=== PATIENT | female | born 1990 | race Caucasian/White ===

== ENCOUNTER 2020-03-31 18:57 | Emergency (ER) | payer OTHER, SELFPAY ==
[2020-03-31 19:13] VITALS: BP 151/94; PULSE 84; RESP 18; TEMP 37.1; O2SAT 99
--- NOTE | 2020-03-31 19:15 | ED.SKABFB ---
HPI - Skin/Abscess/Foreign Bdy General Chief complaint: Skin/Abscess/Foreign Body Stated complaint: spider bite on side Time Seen by Provider: 03/31/20 19:15 Source: patient Mode of arrival: ambulatory Limitations: no limitations History of Present Illness HPI narrative: Aleshia Rossi is a 29 yo female with a PMH of depression who comes to express care for small boil the right side of breast since . currently is draining. Patient states started after swimming in [place] Related Data Home Medications Medication Instructions Recorded Confirmed norethindrone-e.estradiol-iron tablet 03/31/20 [] sertraline mg 03/31/20 Allergies Allergy/AdvReac Type Severity Reaction Status Date / Time No Known Allergies Allergy Unverified 01/03/18 16:27 Review of Systems Review of Systems: Narrative: CONSTITUTIONAL: Denies fever, chills, sweats. EYES: Denies visual changes, redness, discharge. ENT: Denies rhinorrhea, congestion, sore throat, otalgia. CARDIOVASCULAR: Denies chest pain, palpitations, edema. RESPIRATORY: Denies dyspnea, wheezing, cough GASTROINTESTINAL: Denies abdominal pain, nausea, vomiting, diarrhea. GENITOURINARY: Denies dysuria, hematuria, abnormal discharge SKIN: Denies rash or itching. NEUROLOGIC: Denies numbness, or focal weakness. PSYCHIATRIC: Denies anxiety or depression. PMFSH Past Medical History Medical History HTN (hypertension) Family History Family History Other No active medical problems Social History Social History Smoking packs per day: 1 Smoking cigarettes per day: 20.0 Smoking status: Current every day smoker Tobacco type: cigarettes Alcohol intake: current Comments At time of signature, I agree with nursing past medical, surgical, social and family history. There is no relevant family history pertinent to the presenting complaint. Due to pain and procedure from today been should have blood pressure recheck with next week. Patient advised to be discontinued from any blood pressure medications Exam Narrative: Exam Narrative: GENERAL: This is a well-nourished, well-developed patient, in mild distress. HEAD: normocephalic, atraumatic. EYES: Sclera clear/white. Vision is grossly intact. EARS: External ears normal. Hearing grossly intact. NOSE: External nose normal without nasal discharge, nares without redness, no rhinorrhea. THROAT: Mucous membranes moist, NECK: Neck supple, CARDIOVASCULAR: Regular rate and rhythm without murmurs, gallops, or rubs. RESPIRATORY: Clear to auscultation. Breath sounds equal bilaterally. No wheezes, rales, or rhonchi. GASTROINTESTINAL: Abdomen soft, small abscess (3x2) to R breast - slight drainage SKIN: warm, intact with no suspicious lesions or rash, good texture and turgor. NEURO: awake, alert, and oriented to person, place and time. There were no obvious focal neurologic abnormalities. Steady gait EXTREMITIES: Normal range of motion. BACK: Nontender without deformity Course Course Emergency Course: I and D of breat abscess Started on keflex and bactrim Discussed care of abscess and avoidance of sitting Vital Signs Vital signs: Vital Signs Temperature 98.7 F 03/31/20 19:13 Pulse Rate 84 03/31/20 19:13 Respiratory Rate 18 03/31/20 19:13 Blood Pressure 151/94 H 03/31/20 19:13 Pulse Oximetry 99 03/31/20 19:13 Temperature 98.7 F 03/31/20 19:13 Pulse Rate 84 03/31/20 19:13 Respiratory Rate 18 03/31/20 19:13 Blood Pressure 151/94 H 03/31/20 19:13 Pulse Oximetry 99 03/31/20 19:13 Procedures Abscess I/D chest: Date of Incision: 03/31/20 Time of Incision: 19:20 Side (if applicable): right Technique: needle aspiration Amount of fluid expressed (mL): 20 Irr
== END 2020-03-31 19:39 | disposition home or self-care (01) ==
PROVIDERS: Emergency Provider Nurse Practitioner
DX: N61.1 Abscess of the breast and nipple (principal); F17.210 Nicotine dependence, cigarettes, uncomplicated; F41.9 Anxiety disorder, unspecified; F32.9 Major depressive disorder, single episode, unspecified
CPT/HCPCS: 10160; 99213; G0463

== ENCOUNTER 2020-07-02 09:05 | Emergency (ER) | payer OTHER, SELFPAY ==
[2020-07-02 09:10] VITALS: BP 138/81; PULSE 81; RESP 16; TEMP 36.7; O2SAT 100
--- NOTE | 2020-07-02 09:23 | ED.URI ---
HPI - URI/Sore Throat General Chief Complaint: Upper Respiratory Infection Stated Complaint: headache/sore throat Time Seen by Provider: 07/02/20 09:23 Source: patient and RN notes reviewed History of Present Illness HPI Narrative: Patient is a 29-year-old female who presents the urgent care with complaints of a headache and sore throat. Patient states symptoms started approximately 3 days ago and she has been using Tylenol. Denies of any known fever, nausea, vomiting, abdominal pain. Denies of any known exposure to COVID or strep. No other acute complaints. No acute distress noted. Patient aware of the plan of care. Some parts of this dictation were generated by voice recognition software and may contain typographical and/or grammatical inaccuracies. Related Data Home Medications Medication Instructions Recorded Confirmed norethindrone-e.estradiol-iron 1 tablet PO DAILY 03/31/20 07/02/20 [] sertraline 50 mg PO DAILY 03/31/20 07/02/20 Allergies Allergy/AdvReac Type Severity Reaction Status Date / Time No Known Allergies Allergy Unverified 01/03/18 16:27 Review of Systems Review of Systems: Narrative: CONSTITUTIONAL: Denies fever, chills, or sweats. EYES: Denies visual changes, redness, or discharge. ENT: Reports of sore throat CARDIOVASCULAR: Denies chest pain, palpitations, or edema. RESPIRATORY: Denies cough or dyspnea. GASTROINTESTINAL: Denies abdominal pain, nausea, vomiting, or diarrhea. GENITOURINARY: Denies dysuria or hematuria. SKIN: Denies rash or itching. MUSCULOSKELETAL: Denies back pain, joint pain, or myalgia. NEUROLOGIC: Reports of headache All other systems reviewed are negative, except as documented in HPI. PMFSH Social History Social History Smoking packs per day: 1 Smoking cigarettes per day: 20.0 Smoking status: Current every day smoker Tobacco type: cigarettes Alcohol intake: current Comments At the time of my signature, I reviewed and agree with the nursing past medical, surgical, social, and family history. There is no relevant family history pertinent to the patient complaint. Exam Narrative: Exam Narrative: GENERAL: This is a well-nourished, well-developed patient, in no apparent distress. HEAD: normocephalic, atraumatic. EYES: PERRL. Sclera clear/white. Vision is grossly intact. EARS: External ears normal, auditory canals clear and without drainage, TMs normal without perforation. Hearing grossly intact. NOSE: External nose normal with no obvious nasal discharge, nares without redness, no rhinorrhea. THROAT: Mucous membranes moist, mild erythema noted posterior oropharynx with mild postnasal drainage NECK: Neck supple CARDIOVASCULAR: Regular rate and rhythm without murmurs, gallops, or rubs. RESPIRATORY: Clear to auscultation. Breath sounds equal bilaterally. No wheezes, rales, or rhonchi. SKIN: warm, intact with no suspicious lesions or rash, good texture and turgor. NEURO: awake, alert, and oriented to person, place and time. There were no obvious focal neurologic abnormalities. EXTREMITIES: No clubbing, cyanosis, or edema. Course Vital Signs Vital signs: Vital Signs Temperature 98.0 F 07/02/20 09:10 Pulse Rate 81 07/02/20 09:10 Respiratory Rate 16 07/02/20 09:10 Blood Pressure 138/81 07/02/20 09:10 Pulse Oximetry 100 07/02/20 09:10 Temperature 98.0 F 07/02/20 09:10 Pulse Rate 81 07/02/20 09:10 Respiratory Rate 16 07/02/20 09:10 Blood Pressure 138/81 07/02/20 09:10 Pulse Oximetry 100 07/02/20 09:10 Reviewed MDM - URI/Sore Throat MDM Narrative Medical decision making narrative: Reviewed lab results with the patient. She is aware that strep swab was negative. Educated the patient on culture and we will call within 72 hours if culture is positive and antibiotics are necessary. Advised the patient to use [id number] Claritin in conjunction with Flonase ortiz
== END 2020-07-02 09:35 | disposition home or self-care (01) ==
PROVIDERS: Emergency Provider Nurse Practitioner Family; PCP Family Medicine
DX: J02.9 Acute pharyngitis, unspecified (principal); F17.210 Nicotine dependence, cigarettes, uncomplicated; F41.9 Anxiety disorder, unspecified; F32.9 Major depressive disorder, single episode, unspecified
CPT/HCPCS: 87081; 87880; 99213; G0463

== ENCOUNTER 2022-08-16 10:09 | Emergency (ER) | payer OTHER, SELFPAY ==
[2022-08-16 10:26] VITALS: BP 129/60; PULSE 91; RESP 16; TEMP 36.9; O2SAT 100
--- NOTE | 2022-08-16 11:55 | ED.URI ---
HPI - URI/Sore Throat General Chief Complaint: Upper Respiratory Infection Stated Complaint: Chest Congestion/Cough Time Seen by Provider: 08/16/22 11:55 Source: patient, RN notes reviewed and old records reviewed Mode of arrival: ambulatory Limitations: no limitations History of Present Illness HPI Narrative: 31 year old female who presents to [facility] care with complaints of sore throat starting on with loss of voice on Wednesday,and yesterday evening she started with cough. Patient reports that she has been taking Ibuprofen for her symptoms. Patient does reports some yellowish nasal drainage, some body aches and fatigue,and headache, denies any known acute fevers, MD elicited complaint: cough and sore throat Onset (ago): day(s) (day 4 of symptoms) Pain scale (0-10): 6 Exacerbating factors: swallowing and other (cough) Treatments prior to arrival: ibuprofen Related Data Home Medications Medication Instructions Recorded Confirmed norethindrone 1 mg-ethinyl 1 tablet PO DAILY 03/31/20 08/16/22 estradiol 20 mcg (24)-iron 75 mg (4) tablet () sertraline 50 mg tablet 50 mg PO DAILY 03/31/20 08/16/22 lisinopril 5 mg tablet 5 mg PO DAILY 08/16/22 08/16/22 Allergies Allergy/AdvReac Type Severity Reaction Status Date / Time No Known Allergies Allergy Verified 08/16/22 10:50 Review of Systems Review of Systems: CONSTITUTIONAL: Reports malaise,no chills, sweats, or fever. EYES: Denies visual changes, redness, or discharge. ENT: Reports rhinorrhea, congestion,no sinus pain, no otalgia, reports sore throat. CARDIOVASCULAR: Denies chest pain, palpitations, or edema. RESPIRATORY: Reports cough.? Denies dyspnea. GASTROINTESTINAL: Denies abdominal pain, nausea, vomiting, diarrhea SKIN: Denies rash or itching. MUSCULOSKELETAL: reports myalgia. NEUROLOGIC: Reports headache. All systems reviewed & are unremarkable except as noted in HPI and below PMFSH Past Medical History Medical History (Updated 08/21/22 @ 10:14 by Mara Beckwith NP) Anxiety and depression Elevated cholesterol HTN (hypertension) Surgical History Surgical History (Updated 08/21/22 @ 10:13 by Mara L. Amena, ADVERTISING SALES AGENT) H/O tubal ligation Family History Family History Other No active medical problems Social History Social History Smoking packs per day: 1 Smoking cigarettes per day: 20.0 Smoking status: Current every day smoker Tobacco type: cigarettes Alcohol intake: current Comments At time of signature, agree with nursing past medical, surgical, social and family history. There is no relevant family history pertinent to the presenting complaint Exam Narrative: GENERAL: Well-appearing, well-nourished, and in no acute distress. HEAD: Normocephalic EYES: PERRLA, conjunctivae jessica ENT: Nares clear, turbinates edematous and erythematous, yellowish nasal discharge. Mucous membranes moist. TM pearly lazaro with dull light reflex bilaterally; no tragal tenderness. Oropharynx erythematous without lesions. Tonsils not enlarged and without exudate, no drooling, no hoarseness, no trismus, uvula midline. NECK: Supple. No lymphadenopathy CHEST: Clear to auscultation, breath sounds equal. No wheezing, rhonchi, rales, or stridor. No respiratory distress, speaks in full sentences. acute cough, SAO2 100% on room air HEART: Regular rate and rhythm. No murmur heard. SKIN: Warm, dry, no rash. NEURO: Alert and oriented x3. PSYCH: Normal mood and affect Course Course Emergency Course: Patient is aware of diagnosis, understands and agrees to treatment plan.? Anticipatory guidance given.? Patient agrees to follow-up as directed and is aware of reasons to seek care at the emergency department. Portions of this record may have been created with voice recognition software Level of Care: Dana Carr
== END 2022-08-16 12:45 | disposition home or self-care (01) ==
PROVIDERS: Emergency Provider Registered Nurse
DX: J11.1 Influenza due to unidentified influenza virus with other respiratory manifestations (principal); R05.9 Cough, unspecified; F17.210 Nicotine dependence, cigarettes, uncomplicated
CPT/HCPCS: 87081; 87804; 87880; 99213; G0463

== ENCOUNTER 2022-08-23 09:17 | Emergency (ER) | payer OTHER, SELFPAY ==
[2022-08-23 10:07] VITALS: BP 136/76; PULSE 73; RESP 16; TEMP 37; O2SAT 98
--- NOTE | 2022-08-23 11:35 | ED.DENTAL ---
HPI - Dental/Oral General Chief complaint: Dental/Oral Stated complaint: Tooth pain Source: patient Mode of arrival: ambulatory Limitations: no limitations History of Present Illness HPI Narrative: 31 year old female presents to [facility] with complaints of right upper tooth pain since last night. Patient reports that she completed a Z-Erik 1 week ago due to right upper tooth pain. Patient reports that she is scheduled to get her right upper tooth pulled --tooth #4 -on Wednesday08/28/2022. Patient reports that she went to the emergency room last night due to increasing tooth pain and was prescribed another Z-Erik better insurance company would not cover. Patient reports that she is taking clindamycin in the past with good results. Patient denies fevers, nausea vomiting or diarrhea. MD Complaint: tooth pain Location: Tooth # (3) Onset (ago): day(s) (1) Relieving factors: nothing Exacerbating factors: chewing, cold and swallowing Context: history of dental caries Related Data Home Medications Medication Instructions Recorded Confirmed norethindrone 1 mg-ethinyl 1 tablet PO DAILY 03/31/20 08/23/22 estradiol 20 mcg (24)-iron 75 mg (4) tablet () sertraline 50 mg tablet 50 mg PO DAILY 03/31/20 08/23/22 lisinopril 5 mg tablet 5 mg PO DAILY 08/16/22 08/23/22 lovastatin 40 mg tablet 40 mg PO DAILY 08/23/22 08/23/22 Allergies Allergy/AdvReac Type Severity Reaction Status Date / Time Penicillins Allergy Rash Verified 08/23/22 10:14 Review of Systems Constitutional: Constitutional: Denies chills, Denies fatigue, Denies fever(s) and Denies weakness ENT: Denies dizziness Comments: Right upper tooth pain Cardiovascular: Cardiovascular: Denies chest pain Respiratory: Respiratory: Denies chest congestion, Denies cough, Denies dyspnea and Denies wheezing Gastrointestinal: Gastrointestinal: Denies diarrhea, Denies nausea and Denies vomiting Integumentary/Breasts: Skin/Breast: Denies rash Neurologic: Denies vertigo and Denies dizziness Allergic/Immunologic: Allergic/Immunologic: Denies lip swelling, Denies throat swelling, Denies tongue swelling and Denies wheezing PMFSH Past Medical History Medical History Anxiety and depression Elevated cholesterol HTN (hypertension) Surgical History Surgical History H/O tubal ligation Family History Family History Other No active medical problems Social History Social History Smoking packs per day: 1 Smoking cigarettes per day: 20.0 Smoking status: Current every day smoker Tobacco type: cigarettes Alcohol intake: current Comments At time of signature, I agree with nursing past medical, surgical, social and family history. There is no relevant family history pertinent to the presenting complaint. Exam Const: General: healthy appearing, no acute distress and alert Nutritional Appearance: well nourished Orientation/consciousness: patient oriented x3 Limitations: no limitations HENMT: Head: normal to inspection Mouth: Yes Normal oral and palatal mucosa present, Yes lip normal and Yes moist mucous membranes Teeth and gingiva: abnormal tooth and associated gingiva upper right Other: Erythema and swelling surrounding tooth 4.; moderate decay noted to tooth. There is no active abscess noted. Neck: Neck: normal visual inspection Resp: Effort & Inspection: normal respiratory effort and not labored Auscultation: clear to auscultation bilaterally, no crackles, no rales, no rhonchi and no wheezes Cardio: Rate: regular rate Rhythm: regular rhythm Heart sounds: no murmurs Skin: General skin exam: normal color Rashes: no rashes Wounds: no wounds Neuro: General: patient oriented x3 Speech: normal speech Gait exam (Neuro): Francisca
== END 2022-08-23 11:44 | disposition home or self-care (01) ==
PROVIDERS: Emergency Provider Nurse Practitioner Family; PCP Internal Medicine
DX: K08.89 Other specified disorders of teeth and supporting structures (principal); F17.210 Nicotine dependence, cigarettes, uncomplicated; E78.00 Pure hypercholesterolemia, unspecified; I10 Essential (primary) hypertension; F41.9 Anxiety disorder, unspecified; F32.A Depression, unspecified
CPT/HCPCS: 99213; G0463

== ENCOUNTER 2024-04-05 13:21 | Emergency (ER) | payer OTHER, SELFPAY ==
--- NOTE | ~2024-04-05 | XR_ITS ---
EXAMINATION: XR chest 2V DATE: 04/05/2024 14:08 INDICATION: Cough and concern for pneumonia TECHNIQUE: PA and lateral views of the chest were obtained. COMPARISON: None FINDINGS: Moderate-sized region of consolidation in the anterior segment of the right upper lobe extending luz maria g the minor fissure consistent with pneumonia. No other airspace opacities, pulmonary edema, pleural effusion or pneumothorax. The cardiomediastinal silhouette is normal. Mild to moderate midthoracic sp ondylosis with mild anterior wedging at a couple of the thoracolumbar junction and at a midthoracic v ertebra. IMPRESSION: 1. Consolidation in the anterior segment right upper lobe consistent with pneumonia. Reviewed, dictated and finalized at location A. IMPRESSION: 1. Consolidation in the anterior segment right upper lobe consistent with pneum onia.
[2024-04-05 13:27] VITALS: BP 120/78; PULSE 69; RESP 18; TEMP 37; O2SAT 100
--- NOTE | 2024-04-05 13:58 | ED.URI ---
HPI - URI/Sore Throat General Chief Complaint: Upper Respiratory Infection Stated Complaint: chest tight/cough Time Seen by Provider: 04/05/24 13:58 Source: patient, RN notes reviewed and old records reviewed Mode of arrival: ambulatory Limitations: no limitations History of Present Illness HPI Narrative: 33 year old female who presents to express care with complaints of fever, cough pain in upper chest with deep breathing and cough since Wednesday. Patient reports that she has noted some wheezes at times denies any acute shortness of breath with no tachypnea or retractions, Patient reports that she had cardiac ablation on March 24 at [facility] for SVT. Patient voices concern for pneumoni, reports has had past pneumonia. Patient has history of tobacco use and now presently vapes.Patientreports that she has taken some Muucinex and Tylenol for her symptoms MD elicited complaint: fever, cough, nasal congestion and other (hurt to cough and deep breath) Pertinent past history: pneumonia and other (former cigarett use now vapes) Onset (ago): day(s) (4) Severity: moderate Able to tolerate fluids by mouth: Yes Treatments prior to arrival: acetaminophen and other (Mucinex) Related Data Home Medications Medication Instructions Recorded Confirmed norethindrone 1 mg-ethinyl 1 tablet PO DAILY 03/31/20 08/23/22 estradiol 20 mcg (24)-iron 75 mg (4) tablet () sertraline 50 mg tablet 50 mg PO DAILY 03/31/20 08/23/22 lisinopril 5 mg tablet 5 mg PO DAILY 08/16/22 08/23/22 lovastatin 40 mg tablet 40 mg PO DAILY 08/23/22 08/23/22 Vitamin B3 04/05/24 Zinc 04/05/24 aspirin 81 mg tablet,delayed mg 04/05/24 release levothyroxine 100 mcg tablet mcg 04/05/24 metoprolol tartrate 50 mg tablet mg 04/05/24 Allergies Allergy/AdvReac Type Severity Reaction Status Date / Time Penicillins Allergy Rash Verified 08/23/22 10:14 Review of Systems Review of Systems: CONSTITUTIONAL: Reports malaise, chills, sweats, positive for fever. EYES: Denies visual changes, redness, or discharge. ENT: Reports rhinorrhea, congestion, no sinus pain, no otalgia and no sore throat. CARDIOVASCULAR: Denies chest pain, palpitations, or edema.States some chest discomfort when coughs and taking deep breaths RESPIRATORY: Reports cough.? Denies acute dyspnea reports some with exertion.. GASTROINTESTINAL: Denies abdominal pain, nausea, vomiting, diarrhea SKIN: Denies rash or itching. MUSCULOSKELETAL: Denies myalgia. NEUROLOGIC: Denies headache. All systems reviewed & are unremarkable except as noted in HPI and below PMFSH Past Medical History Medical History (Updated 04/07/24 @ 11:07 by Mara Beckwith NP) Anxiety and depression Elevated cholesterol HTN (hypertension) Hypothyroid Pneumonia SVT (supraventricular tachycardia) Surgical History Surgical History (Updated 04/05/24 @ 14:36 by Mara Beckwith NP) H/O cardiac radiofrequency ablation March 242023 H/O tubal ligation Family History Family History Other No active medical problems Social History Social History (Updated 04/07/24 @ 11:02 by Mara Beckwith NP) Smoking packs per day: 1 Smoking cigarettes per day: 20.0 Years smoked: 10 Smoking pack-years: 10.00 Smoking status: Current every day smoker Tobacco type: cigarettes and e-cigarettes/vaping Additional smoking assessment comments: use to smoke cigarettes now vapes Alcohol intake: current Substance use type: does not use Living arrangements: with family Gender identity (if verbalized by the patient): Female Comments At time of signature, agree with nursing past medical, surgical, social and family history. There is no relevant family history pertinent to the presenting complaint Exam Narrative: GENERAL: Well-appearing, well-nourished, and in no acute distress. HEAD: Normocephalic EYES: PERRLA, conj
== END 2024-04-05 14:54 | disposition home or self-care (01) ==
PROVIDERS: Emergency Provider Registered Nurse
DX: J18.9 Pneumonia, unspecified organism (principal); F17.290 Nicotine dependence, other tobacco product, uncomplicated; E78.00 Pure hypercholesterolemia, unspecified; I10 Essential (primary) hypertension; E03.9 Hypothyroidism, unspecified; F41.9 Anxiety disorder, unspecified; F32.A Depression, unspecified
CPT/HCPCS: 71046; 99213; G0463

== ENCOUNTER 2024-06-27 08:20 | Emergency (ER) | payer BC, SELFPAY ==
[2024-06-27 08:28] VITALS: BP 120/75; PULSE 74; RESP 20; TEMP 37; O2SAT 98
--- NOTE | 2024-06-27 08:42 | ED.URI ---
HPI - URI/Sore Throat General Chief Complaint: Upper Respiratory Infection Stated Complaint: throat/headache Time Seen by Provider: 06/27/24 08:42 Source: patient, RN notes reviewed and old records reviewed Mode of arrival: ambulatory Limitations: no limitations History of Present Illness HPI Narrative: 33-year-old female to Express Care with complaint of headache that started 3 days ago and sore throat that started last night. Patient endorses history of hypertension, high cholesterol, hypothyroidism. Patient denies history of migraines. Patient concerned for strep throat. Patient has attempted to treat symptoms of pain with Tylenol, last dose at 1:00 a.m. today. Patient denies difficulty swallowing, shortness of breath, fever, chest pain, ear pain, congestion. Patient able to tolerate fluids by mouth. Patient resting comfortably in exam room in no acute distress. Respirations even nonlabored. Patient able to control secretions. Related Data Home Medications Medication Instructions Recorded Confirmed norethindrone 1 mg-ethinyl 1 tablet PO DAILY 03/31/20 06/27/24 estradiol 20 mcg (24)-iron 75 mg (4) tablet () sertraline 50 mg tablet 50 mg PO DAILY 03/31/20 06/27/24 lisinopril 5 mg tablet 5 mg PO DAILY 08/16/22 06/27/24 lovastatin 40 mg tablet 40 mg PO DAILY 08/23/22 06/27/24 aspirin 81 mg tablet,delayed 81 mg PO DAILY 04/05/24 06/27/24 release levothyroxine 100 mcg tablet 100 mcg PO DAILY 04/05/24 06/27/24 metoprolol tartrate 50 mg tablet 50 mg PO DAILY 04/05/24 06/27/24 Allergies Allergy/AdvReac Type Severity Reaction Status Date / Time Penicillins Allergy Unknown Rash Verified 06/27/24 08:47 Review of Systems Review of Systems: All systems reviewed & are unremarkable except as noted in HPI and below Constitutional: Constitutional: Reports as per HPI and Reports headache(s) Eyes: Eyes: Reports no additional eye complaints ENT: Reports as per HPI and Reports sore throat Cardiovascular: Cardiovascular: Reports no additional cardiovascular complaints, Denies chest pain and Denies dyspnea Respiratory: Respiratory: Reports no additional respiratory complaints, Denies cough and Denies dyspnea Musculoskeletal: Musculoskeletal: Reports no additional musculoskeletal complaints Neurologic: Reports system reviewed and no additional complaints, except as documented Psychiatric: Psychiatric: Reports no additional psychiatric complaints PMFSH Past Medical History Medical History Anxiety and depression Elevated cholesterol HTN (hypertension) Hypothyroid Pneumonia SVT (supraventricular tachycardia) Surgical History Surgical History H/O cardiac radiofrequency ablation March 242023 H/O tubal ligation Family History Family History Other No active medical problems Social History Social History Smoking packs per day: 1 Smoking cigarettes per day: 20.0 Years smoked: 10 Smoking pack-years: 10.00 Smoking status: Current every day smoker Tobacco type: cigarettes and e-cigarettes/vaping Additional smoking assessment comments: use to smoke cigarettes now vapes Alcohol intake: current Substance use type: does not use Living arrangements: with family Gender identity (if verbalized by the patient): Female Comments At the time of my signature, I reviewed and agree with the nursing past medical, surgical, social, and family history. There is no relevant family history pertinent to the patient complaint. Exam Const: General: cooperative, healthy appearing, comfortable, no acute distress, alert and well nourished Nutritional Appearance: well nourished Orientation/consciousness: patient oriented x3 Limitations: no limitations JARED
[2024-06-27 09:01] LABS: EDCOVIDSCREEN Negative (Negative); EDINFLUASCREEN Negative (Negative); EDINFLUBSCREEN Negative (Negative); EDSTREPNEGPOS1 Negative (Negative)
== END 2024-06-27 09:00 | disposition home or self-care (01) ==
PROVIDERS: Emergency Provider Nurse Practitioner Family
DX: J02.9 Acute pharyngitis, unspecified (principal); R51.9 Headache, unspecified; B34.9 Viral infection, unspecified; Z20.822 Contact with and (suspected) exposure to COVID-19; F17.290 Nicotine dependence, other tobacco product, uncomplicated; E78.00 Pure hypercholesterolemia, unspecified; I10 Essential (primary) hypertension; E03.9 Hypothyroidism, unspecified; F41.9 Anxiety disorder, unspecified; F32.A Depression, unspecified
CPT/HCPCS: 87081; 87426; 87804; 87880; 99213; G0463

== ENCOUNTER 2025-05-28 09:21 | Emergency (ER) | payer BC, SELFPAY ==
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
[2025-05-28 09:26] VITALS: BP 135/75; PULSE 78; RESP 16; TEMP 36.3; O2SAT 99
--- OUTSIDE RECORDS SUMMARY | 2025-05-28 09:26 | XMS_ITS | Clinical Summary ---
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 cervical cancer. It is not a diagnostic test and is subject to false negative and false positive results. It is most reliable when a satisfactory sample, regularly obtained, is submitted with relevant clinical findings and history, and when the Pap result is evaluated along with historic and current clinical information. Thin prep 01/16/2025 3:53 PM CDT 01/17/2025 9:19 PM CDT Makenna James NP LAB CYTOLOGY ORDERABLES Final Re sult Performing Organization Address [facility] Co de Phone Number [facility] [employer] [address] [address] [place] [address] * Hepatitis C antibody Blood (12/25/2024 11:50 AM CDT) Hep C Ab Nonreactive Nonreactive Comment: Interpretive Data Nonreactive: Antibodies to HCV not detected. Does NOT exclude the possibility of recent exposure to HCV. Equivocal: Equivocal for HCV antibodies. Supplemental molecular testing will be automatically performed to determine infection status in accordance with current CDC screening recommendations. Reactive: Positive for HCV antibodies. This may represent current or past HCV infection. Supplemental molecular testing will be automatically performed to determine current infection status in accordance with current CDC screening recommendations. Interpretive data was last revised on 2019. Testing performed by: [facility], [address] [place] [address]., [id number] Blood 12/25/2024 11:5 0 AM CDT 12/25/2024 7:15 PM CDT Doyle Lu MD LAB MICROBIOLOGY - [facility] L ORDERABLES Final Result [facility] Department [place] [address] from Last 3 Months or Most Recently Relevant to Health Maintenance Insurance [facility] [place] Advance Directives For more information, please contact: [phone] * Full Code (Latest Code Status on File) Date Activated Date Inactivated Comments 07/10/2020 12:51 PM 07/10/2020 6:57 PM * Full Code Date Activated Date Inactivated Comments 11/25/2019 4:13 PM 11/26/2019 10:48 PM * Full Code Date Activated Date Inactivated Comments 11/18/2019 1:08 AM 11/19/2019 5:22 PM * Full Code Date Activated Date Inactivated Comments 11/17/2019 6:13 AM 11/18/2019 1:08 AM Full CPR in case of cardiopulmonary arrest * Full Code Date Activated Date Inactivated Comments 2019 10:58 PM 09/16/2019 12:43 AM Full CPR in case of cardiopulmonary arrest Care Teams 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
--- OUTSIDE RECORDS SUMMARY | 2025-05-28 09:26 | XMS_ITS | Clinical Summary ---
Author Organization [facility] Address [address] [place] [address] Phone Care Team Providers Care Psych Arnp Name Role Phone Jerome Jacobo MD Primary Care Provider Allergies Active Allergy Reactions Criticality Noted Date Comments Penicillins Unknown 02/26/2023 Medications No known medications Social History Tobacco Use Types Packs/Day Years Used Date Smoking Tobacco: Never Passive Smoke Exposure: Never Smokeless Tobacco: Never Tobacco Cessation:Counseling Given: Not Answered Alcohol Use Standard Drinks/Week Comments Not Currently 0 (1 standard drink = 0.6 oz pur e alcohol) Comments No Sex and Gender Information Value Date Recorded Sex Assigned at Not on file Legal Sex Female 7:31 PM CDT Gender Identity Not on file Sexual Orientation Not on file Last Filed Vital Signs Vital Sign Reading Time Taken Comments Blood Pressure 112/65 02/26/2023 4:57 PM CDT Pulse 70 02/26/2023 4:57 PM CDT Temperature 36.4 C (97.6 F) 02/26/2023 4:57 PM CDT Respiratory Rate 18 02/26/2023 4:57 PM CDT Oxygen Saturation 100% 02/26/2023 4:57 PM CDT Inhaled Oxygen Concentration - - Weight 78 kg (172 lb) 02/26/2023 2:23 PM CDT Height 157.5 cm (5' 2) 02/26/2023 2:23 PM CDT Body Mass Index 31.46 02/26/2023 2:23 PM CDT Plan of Treatment Health Maintenance Due Date Last Done Comments Hepatitis C Virus (HCV) Screening 1989 Hepatitis B Immunization (3 of 3 - 3-dose series) 11/25/2000 09/30/2000, 04/26/2000, 04/05/2000 Pap Smear 2010 Cervical Cancer Screening (CCS) 2019 HPV/Cotest 2019 SARS-COV-2 Immunization ( season) 2024 Influenza Immunization (#1) 2025 07/20/2011 Respiratory Syncytial Virus (RSV) Immunization (Adult) (1 - 1-dose 75+ series) 2064 Human Papillomavirus (HPV) Immunization Completed 10/04/2012, 09/07/2008, 06/13/2008 DTaP/Tdap/Td Immunization Discontinued 2019, 01/10/2015, 04/02/2004, Additional history exists TdaP Immunization Completed 10/17/2019, 01/10/2015 Meningococcal Immunization (ACWY) Aged Out No longer eligible based on patient's age to complete this topic Pneumococcal Immunization Combined Aged Out No longer eligible based on patient's age to complete this topic Rotavirus Immunization Aged Out No lo nger eligible based on patient's age to complete this topic Insurance MEDICAID [place] Care Teams Psych Arnp Relationship Specialty Start Date End Date Jerome Jacobo MD PCP - General Internal Medicine 02/26/23
--- NOTE | 2025-05-28 09:45 | ED.SKABFB ---
HPI - Skin/Abscess/Foreign Bdy General Chief complaint: Skin/Abscess/Foreign Body Stated complaint: Rash behind ear and on lower back/irrated nail bed Time Seen by Provider: 05/28/25 09:35 Source: patient and RN notes reviewed Mode of arrival: ambulatory Limitations: no limitations History of Present Illness HPI narrative: 34-year-old female presents Express Care complaining of rash for 2 days. Patient says she noticed a rash on the left side of her neck after she started itching. Since then the patient has noticed the rash is spread to her bilateral lower flanks. Patient also reports she had her nails done with gel and also reports having blistering around her nail beds. Patient says she has removed the gel since. Patient reports the rashes or pruritic. Patient has taken Zyrtec along with using a Tylenol cream without relief. Patient denies any other symptoms. Patient denies being outside or being in the [place]. Related Data Home Medications ?Medication ?Instructions ?Recorded ?Confirmed ?Last Taken ?Type norethindrone 1 mg-ethinyl 1 tablet PO DAILY 03/31/20 06/27/24 Unknown History estradiol 20 mcg (24)-iron 75 mg (4) tablet () sertraline 50 mg tablet 50 mg PO DAILY 03/31/20 06/27/24 Unknown History lisinopril 5 mg tablet 5 mg PO DAILY 08/16/22 06/27/24 Unknown History lovastatin 40 mg tablet 40 mg PO DAILY 08/23/22 06/27/24 Unknown History levothyroxine 100 mcg tablet 100 mcg PO DAILY 04/05/24 06/27/24 Unknown History Allergies Allergy/AdvReac Type Severity Reaction Status Date / Time Penicillins Allergy Unknown Rash Verified 05/28/25 09:32 Review of Systems Review of Systems: CONSTITUTIONAL: Denies fever, chills, or sweats. EYES: Denies visual changes, redness, or discharge. ENT: Denies rhinorrhea, congestion, sore throat, or otalgia. CARDIOVASCULAR: Denies chest pain, palpitations, or edema. RESPIRATORY: Denies cough or dyspnea. GASTROINTESTINAL: Denies abdominal pain, nausea, vomiting, or diarrhea. GENITOURINARY: Denies dysuria or hematuria. SKIN: Positive for rash and itching. MUSCULOSKELETAL: Denies back pain, joint pain, or myalgia. NEUROLOGIC: Denies headache, numbness, or weakness. PSYCHIATRIC: Denies anxiety or depression. All other systems reviewed are negative, except as documented in HPI. [facility] Past Medical History Medical History Hypothyroid SVT (supraventricular tachycardia) Pneumonia Anxiety and depression Elevated cholesterol HTN (hypertension) Surgical History Surgical History H/O cardiac radiofrequency ablation March 242023 H/O tubal ligation Family History Family History Other No active medical problems Social History Social History Smoking packs per day: 1 Smoking cigarettes per day: 20.0 Years smoked: 10 Smoking pack-years: 10.00 Smoking status: Current every day smoker Tobacco type: cigarettes and e-cigarettes/vaping Additional smoking assessment comments: use to smoke cigarettes now vapes Alcohol intake: current Substance use type: does not use Living arrangements: with family Gender identity (if verbalized by the patient): Female Comments At the time of my signature, I reviewed and agree with the nursing past medical, surgical, social, and family history. There is no relevant family history pertinent to the patient complaint. Exam Narrative: GENERAL: This is a well-nourished, well-developed adult, in no apparent distress. They are non ill-appearing, nontoxic appearing. HEAD: normocephalic, atraumatic. EYES: Sclera clear/white. Conjunctiva normal. Vision is grossly intact. Extraocular movements intact EARS: External ears normal, Hearing grossly intact. NOSE: External nose normal THROAT: Mucous membranes moist, NECK: Neck supple, CARDIOVASCULAR: Regular rate and rhythm RESPIRATORY: Respiratory rate normal, respiratory effort nonlabored, no respiratory distress SKIN: There is a macular erythematous rash present to the patient's left lateral neck, bilateral lower flanks near the iliac crest. There are irregularly shaped. It is nontender, no area of fluctuance, no induration, no exudate.. There is a fist erythematous the vesicular rash her on the patient's nails of her fingers. Your nontender no area of fluctuance, no induration, no exudate. NEURO: awake, alert, and oriented to person, place and time. There were no obvious focal neurologic abnormalities. Course Course Emergency Course: Portions of this record may have been created with voice recognition software Level of Care: Express Care Visit Vital Signs Vital signs: Vital Signs Temperature 97.4 F L 05/28/25 09:26 Pulse Rate 78 05/28/25 09:26 Respiratory Rate 16 05/28/25 09:26 Blood Pressure 135/75 05/28/25 09:26 Pulse Oximetry 99 05/28/25 09:26 Oxygen Delivery Room Air 05/28/25 09:26 Temperature 97.4 F L 05/28/25 09:26 Pulse Rate 78 05/28/25 09:26 Respiratory Rate 16 05/28/25 09:26 Blood Pressure 135/75 05/28/25 09:26 Pulse Oximetry 99 05/28/25 09:26 Oxygen Delivery Room Air 05/28/25 09:26 Reviewed MDM - Skin/Abscess/Foreign Bdy MDM Narrative Medical decision making narrative: Rashes likely related to contact dermatitis. Will prescribe triamcinolone cream. Patient removed the gel from her fingernails which could have been the irritant. Discussed physical exam findings. Advised supportive measures and signs/symptoms to go to the ER. Pt is appropriate for outpt treatment and f/u. Differential Diagnosis Differential diagnosis: Likely urticaria, cellulitis, eczema and contact dermatitis Critical Care Time Critical Care Time Critical Care Time: No Discharge Plan Discharge Clinical Impression: Contact dermatitis Qualifiers: Contact dermatitis type: unspecified Contact dermatitis trigger: unspecified trigger Qualified Code(s): L25.9 - Unspecified contact dermatitis, unspecified cause Patient Disposition: Home Condition: Stable Instructions: Contact Dermatitis (DC) Additional Instructions: Use the triamcinolone cream as directed. Apply only to the affected area. You may use calamine lotion, camphor or Benadryl cream as needed for itchiness symptoms. You may also take Zyrtec or Claritin as needed for allergy or itchiness symptoms. Follow-up PCP in 3-5 days. If you develop any worsening redness, swelling, discharge, fevers, breathing problems, or any other concerns please go to the ER immediately. Patient Language: Mohawk Prescriptions: New triamcinolone acetonide 0.5 % cream 1 applic topical BID 7 Days Qty: 15 0RF No Action sertraline 50 mg tablet 50 mg PO DAILY 1 mg-20 mcg (24)/75 mg (4) tablet 1 tablet PO DAILY lisinopril 5 mg tablet 5 mg PO DAILY lovastatin 40 mg tablet 40 mg PO DAILY levothyroxine 100 mcg tablet 100 mcg PO DAILY Follow-up/Referrals: Tabitha,MD Doyle [Primary Care Provider, Unknown] Time of Disposition: 09:43
== END 2025-05-28 09:47 | disposition home or self-care (01) ==
PROVIDERS: PCP Hospitalist
DX: L25.9 Unspecified contact dermatitis, unspecified cause (principal); F17.290 Nicotine dependence, other tobacco product, uncomplicated; I10 Essential (primary) hypertension; E03.9 Hypothyroidism, unspecified; E78.00 Pure hypercholesterolemia, unspecified; F41.9 Anxiety disorder, unspecified; F32.A Depression, unspecified
CPT/HCPCS: 99213; G0463